=== PATIENT | male | born 1975 | race Caucasian/White ===

== ENCOUNTER → 2021-12-30 | Outpatient (CLI) | payer OTHER ==
[~2021-12-30] MED LIST: LEVOTHYROXINE75 MCG PO; LITHOBID300 MG PO; SEROQUEL100 MG PO
== END | disposition home or self-care (01) ==
LOC: OR 07:22 → RAD 07:22 → EDSTATUS 13:30 → EDSEX 13:30
PROVIDERS: ATTEND Internal Medicine Gastroenterology
DX: R14.0 Abdominal distension (gaseous) (principal); K59.00 Constipation, unspecified; K92.1 Melena; Z53.8 Procedure and treatment not carried out for other reasons; Z01.810 Encounter for preprocedural cardiovascular examination
CPT/HCPCS: 93005